=== PATIENT | female | born 1995 | race Caucasian/White ===

== ENCOUNTER 2019-01-09 00:05 | Emergency (ER) | payer SELFPAY ==
[~2019-01-09] VITALS: Ht 160 cm; Wt 63.5 kg
[2019-01-09 00:51] VITALS: BP 130/81
[2019-01-09] MEDS ORDERED: cefTRIAXone SOD 1,000 MG VL IM ONE (02:30)
== END 2019-01-09 02:40 | disposition home or self-care (01) ==
LOC: ER 00:05
DX: S91.311A Laceration without foreign body, right foot, initial encounter (principal); Z88.0 Allergy status to penicillin; W25.XXXA Contact with sharp glass, initial encounter; Y93.89 Activity, other specified; Y99.8 Other external cause status; Y92.89 Other specified places as the place of occurrence of the external cause
CPT/HCPCS: 12001; 73630; 96372; 99283; J0696

== ENCOUNTER 2019-01-10 13:20 | Emergency (ER) | payer SELFPAY ==
[~2019-01-10] VITALS: Ht 162.6 cm; Wt 62.6 kg
[2019-01-10 14:52] VITALS: BP 143/96
== END 2019-01-10 16:52 | disposition home or self-care (01) ==
LOC: ER 13:22
DX: S91.311D Laceration without foreign body, right foot, subsequent encounter (principal); F17.210 Nicotine dependence, cigarettes, uncomplicated; X58.XXXD Exposure to other specified factors, subsequent encounter; Z88.0 Allergy status to penicillin; Z76.0 Encounter for issue of repeat prescription

== ENCOUNTER 2019-01-15 12:17 | Emergency (ER) | payer MEDICAID ==
[~2019-01-15] VITALS: Ht 162.6 cm; Wt 63.5 kg
[2019-01-15 13:39] VITALS: BP 125/93
== END 2019-01-15 13:45 | disposition home or self-care (01) ==
LOC: ER 12:20
DX: S91.311D Laceration without foreign body, right foot, subsequent encounter (principal); F17.210 Nicotine dependence, cigarettes, uncomplicated; Z48.01 Encounter for change or removal of surgical wound dressing; X58.XXXD Exposure to other specified factors, subsequent encounter

== ENCOUNTER 2019-01-26 18:04 | Emergency (ER) | payer MEDICAID ==
[~2019-01-26] VITALS: Ht 162.6 cm; Wt 68.0 kg
[2019-01-26 18:38] VITALS: BP 128/95
[2019-01-26] MEDS ORDERED: cefTRIAXone SOD 1,000 MG VL IM ONE (22:15)
== END 2019-01-26 23:07 | disposition home or self-care (01) ==
LOC: ER 18:08
DX: S91.311D Laceration without foreign body, right foot, subsequent encounter (principal); L08.9 Local infection of the skin and subcutaneous tissue, unspecified; F17.210 Nicotine dependence, cigarettes, uncomplicated; Z88.0 Allergy status to penicillin; X58.XXXD Exposure to other specified factors, subsequent encounter
CPT/HCPCS: 73700; 96372; 99284; J0696

== ENCOUNTER 2019-01-28 13:20 | Emergency (ER) | payer MEDICAID ==
[~2019-01-28] VITALS: Ht 162.6 cm; Wt 68.0 kg
[2019-01-28 13:32] VITALS: BP 126/72
== END 2019-01-28 14:43 | disposition home or self-care (01) ==
LOC: ER 13:25
DX: S91.311D Laceration without foreign body, right foot, subsequent encounter (principal); F17.210 Nicotine dependence, cigarettes, uncomplicated; Z48.01 Encounter for change or removal of surgical wound dressing; X58.XXXD Exposure to other specified factors, subsequent encounter

== ENCOUNTER 2019-04-08 23:46 | Emergency (ER) | payer SELFPAY ==
[~2019-04-08] VITALS: Ht 160 cm; Wt 81.6 kg
[2019-04-09 01:27] LABS: Basophils # (auto) 0 uL; Basophils % (auto) 0.5 % (0.0-2.0); Eosinophils # (auto) 0.2 uL; Eosinophils % (auto) 2.6 % (0.0-7.0); Hematocrit 46.1 % (36.0-46.0); Hemoglobin 16.1 g/dL (12.2-16.2); Lymphocytes # (auto) 2.4 uL; Mean Corpuscular Hemoglobin 31.5 pg (28.0-32.0); Mean Corpuscular Hgb Conc. 34.8 g/dL (32.0-36.0); Mean Corpuscular Volume 90.5 fL (80.0-100.0); Monocytes # (auto) 0.3 uL; Monocytes % (auto) 4.8 % (0.0-12.0); Neutrophils % (auto) 51.1 % (37.0-80.0); Platelet Count (auto) 293 10^3/uL (140-450); Red Blood Cells 5.09 10^6/uL (4.0-5.20); Red Cell Distribution Width 14.3 % (11.8-14.3); White Blood Cell 5.9 10^3/uL (4.4-10.8)
[2019-04-09 01:29] LABS: Urine Amorphous Crystal FEW /hpf (None Seen); Urine Bacteria FEW /hpf (None Seen); Urine Blood Negative /uL (Negative); Urine Mucus FEW (None Seen); Urine Specific Gravity 1.004 (1.001-1.035); Urine WBC 1 /hpf (0 - 5)
[2019-04-09 01:43] LABS: Potassium 3.7 mmol/L (3.5-5.1)
[2019-04-09 01:44] LABS: Amphetamine Screen, Urine NEGATIVE (NEGATIVE); Barbiturate Scree,Urine NEGATIVE (NEGATIVE); Benzodiazephine Screen, Urine NEGATIVE (NEGATIVE); Cannabinoid Screen, Urine NEGATIVE (NEGATIVE); Cocaine Screen, Urine NEGATIVE (NEGATIVE); Opiate Scree,Urine NEGATIVE (NEGATIVE); Phencyclidine Screen, Urine NEGATIVE (NEGATIVE)
[2019-04-09 01:48] LABS: Albumin 3.9 g/dL (3.4-5.0); BUN/Creatinine Ratio 8.1; Calcium 8.5 mg/dL (8.5-10.1); Magnesium 2.2 mg/dL (1.6-2.6)
[2019-04-09 01:51] LABS: Acetaminophen < 2.0 ug/mL (10-30); Bilirubin, Total 0.7 mg/dL (0.2-1.0); Total Protein 7.7 g/dL (6.4-8.2)
[2019-04-09] MEDS ORDERED: SODIUM CHLORIDE 0.9% 1,000 ML IV ONE (05:15)
[2019-04-09] MEDS ORDERED: THIAMINE INJ 100 MG in SODIUM CHLORIDE 0.9% 1,000 ML IV ONE (05:15)
[2019-04-09] MEDS ORDERED: ONDANSETRON HCL 4 MG/2 ML VIAL IV ONE (06:00)
[2019-04-09] MEDS ORDERED: THIAMINE 100mg/ml INJ (200mg/2ml VIAL) ONE (06:06)
[2019-04-09 07:53] VITALS: BP 114/73
== END 2019-04-09 09:27 | disposition home or self-care (01) ==
LOC: EDBD 23:46 → ER 04-09 00:15
DX: F29 Unspecified psychosis not due to a substance or known physiological condition (principal); F10.20 Alcohol dependence, uncomplicated; F17.210 Nicotine dependence, cigarettes, uncomplicated; F32.9 Major depressive disorder, single episode, unspecified; Z88.0 Allergy status to penicillin
CPT/HCPCS: 36415; 80053; 80307; 80320; 80329; 81001; 81025; 83735; 85025; 96365; 96375; 99284; J2405; J3411; J7030

== ENCOUNTER 2019-08-02 01:16 | Emergency (ER) | payer SELFPAY ==
[~2019-08-02] VITALS: Ht 160 cm; Wt 68.0 kg
[2019-08-02 07:45] VITALS: BP 120/78
[2019-08-02] MEDS ORDERED: IBUPROFEN 800 MG TAB PO ONE (07:45)
== END 2019-08-02 07:55 | disposition home or self-care (01) ==
LOC: ER 01:16
DX: M79.641 Pain in right hand (principal); M79.672 Pain in left foot; F17.210 Nicotine dependence, cigarettes, uncomplicated; Z88.0 Allergy status to penicillin
CPT/HCPCS: 73130; 73630